=== PATIENT | male | born 1970 | race Caucasian/White ===

== ENCOUNTER 2017-04-18 22:52 | Emergency (ER) | payer MEDICAID ==
[~2017-04-18] VITALS: Ht 175.3 cm; Wt 75.3 kg
[~2017-04-18 22:52] MED LIST: MINE50OI TOP
[2017-04-19] MEDS ORDERED: guaiFENesin ER 600mg tablet PO STA (00:05)
[2017-04-19] MEDS ORDERED: azithromycin 250mg tablet PO STA (00:05)
[2017-04-19] MEDS ORDERED: albuterol 2.5 MG/3 ML nebule NEB STA (00:05)
[2017-04-19] MEDS ORDERED: ALBU8.5H8 IH (01:09)
[2017-04-19] MEDS ORDERED: AZIT-57 PO (01:09)
[2017-04-19] MEDS ORDERED: GUAI600T45 PO (01:09)
[2017-04-19 01:24] VITALS: BP 127/65
== END 2017-04-19 01:26 | disposition home or self-care (01) ==
LOC: ER 22:53
DX: J20.9 Acute bronchitis, unspecified (principal); J06.9 Acute upper respiratory infection, unspecified; F15.10 Other stimulant abuse, uncomplicated; F10.10 Alcohol abuse, uncomplicated; Z71.6 Tobacco abuse counseling
CPT/HCPCS: 71045; 93005; 94640; 94760; 99284

== ENCOUNTER 2018-11-16 18:41 | Emergency (ER) | payer OTHER ==
[~2018-11-16] VITALS: Ht 175.3 cm; Wt 72.7 kg
[~2018-11-16 18:41] MED LIST changes: +ALBU8.5H8 IH; +GUAI600T45 PO
[2018-11-16 18:49] VITALS: BP 141/93
== END 2018-11-16 20:00 | disposition left against medical advice (07) ==
LOC: ER 18:42
DX: K13.0 Diseases of lips (principal); Z53.21 Procedure and treatment not carried out due to patient leaving prior to being seen by health care provider; W22.8XXA Striking against or struck by other objects, initial encounter; Y93.89 Activity, other specified; Y92.89 Other specified places as the place of occurrence of the external cause; Y99.8 Other external cause status